=== PATIENT | male | born 1965 | race Caucasian/White ===

== ENCOUNTER 2018-10-21 08:49 | Inpatient (IN) | payer OTHER ==
[~2018-10-21] VITALS: Ht 175.3 cm; Wt 59.8 kg
[~2018-10-21 08:49] MED LIST: CLIN300 PO; Dazidox10 MG PO; HYDACE5 PO
[2018-10-21 10:08] LABS: BASOPHILS ABSOLUTE AUTO 0.05 K/mm3 (0.00-0.23); BASOPHILS PERCENT AUTO 0 % (0-2); EOSINOPHILS ABSOLUTE AUTO 0.05 K/mm3 (0.00-0.68); EOSINOPHILS PERCENT AUTO 0 % (0-6); Hematocrit 40.1 % (37.0-53.0); Hemoglobin 13.6 g/dL (13.5-17.5); IMMATURE GRAN ABSOLUTE AUTO 0.06 K/mm3 (0.00-0.10); IMMATURE GRAN PERCENT AUTO 0 % (0-1); LYMPHOCYTES ABSOLUTE AUTO 1.59 K/mm3 (0.84-5.20); LYMPHOCYTES PERCENT AUTO 9 % (21-46); MONOCYTES ABSOLUTE AUTO 1.23 K/mm3 (0.16-1.47); MONOCYTES PERCENT AUTO 7 % (4-13); Mean Corpuscular HGB 30.2 pg (26.0-34.0); Mean Corpuscular HGB Conc 33.9 g/dL (31.5-36.5); Mean Corpuscular Volume 89 fL (80-100); Mean Platelet Volume 11.1 fL (9.1-12.4); NEUTROPHILS ABSOLUTE AUTO 14.99 K/mm3 (1.96-9.15); NEUTROPHILS PERCENT AUTO 84 % (41-73); Platelet Count 164 K/mm3 (150-400); RDW Coefficient Variation 13.2 % (11.7-14.2); RDW Standard Deviation 43.5 fL (35.1-46.3); Red Blood Cell Count 4.51 M/mm3 (4.30-5.90); White Blood Cell Count 17.97 K/mm3 (4.00-11.30)
[2018-10-21 10:23] LABS: Alanine Aminotransfer (ALT/SGP 31 U/L (12-78); Albumin, Blood 2.9 g/dL (3.4-5.0); Albumin/Globulin Ratio 0.7 (0.8-1.8); Alk Phos 114 U/L (50-136); Anion Gap 8 mmol/L (6-16); Aspartate Aminotrans (AST/SGOT 24 U/L (12-37); Bilirubin, Total 0.4 mg/dL (0.1-1.0); Blood Urea Nitrogen 16 mg/dL (8-24); Bun/Creatinine Ratio 16.1 (12.0-20.0); CO2, Blood 24 mmol/L (21-32); Calcium, Blood 8.3 mg/dL (8.5-10.1); Chloride, Blood 101 mmol/L (98-108); Creatinine, Blood 0.99 mg/dL (0.60-1.20); Globulin, Blood 4.3 g/dL (2.2-4.0); Glomerular Filtration Rate >60 (60-); Glucose, Blood 139 mg/dL (70-99); Potassium, Blood 3.7 mmol/L (3.5-5.5); Sodium, Blood 133 mmol/L (136-145); Total Protein, Blood 7.2 g/dL (6.4-8.2)
[2018-10-22 04:44] LABS: BASOPHILS ABSOLUTE AUTO 0.02 K/mm3 (0.00-0.23); BASOPHILS PERCENT AUTO 0 % (0-2); EOSINOPHILS ABSOLUTE AUTO 0.17 K/mm3 (0.00-0.68); EOSINOPHILS PERCENT AUTO 2 % (0-6); Hematocrit 38.8 % (37.0-53.0); IMMATURE GRAN ABSOLUTE AUTO 0.04 K/mm3 (0.00-0.10); IMMATURE GRAN PERCENT AUTO 0 % (0-1); LYMPHOCYTES ABSOLUTE AUTO 1.95 K/mm3 (0.84-5.20); LYMPHOCYTES PERCENT AUTO 17 % (21-46); MONOCYTES ABSOLUTE AUTO 0.97 K/mm3 (0.16-1.47); MONOCYTES PERCENT AUTO 9 % (4-13); Mean Corpuscular HGB Conc 33.5 g/dL (31.5-36.5); Mean Corpuscular Volume 89 fL (80-100); Mean Platelet Volume 10.8 fL (9.1-12.4); NEUTROPHILS ABSOLUTE AUTO 8.18 K/mm3 (1.96-9.15); NEUTROPHILS PERCENT AUTO 72 % (41-73); Platelet Count 160 K/mm3 (150-400); RDW Coefficient Variation 13.2 % (11.7-14.2); RDW Standard Deviation 43.3 fL (35.1-46.3); Red Blood Cell Count 4.34 M/mm3 (4.30-5.90); White Blood Cell Count 11.33 K/mm3 (4.00-11.30)
[2018-10-22 05:05] LABS: Anion Gap 8 mmol/L (6-16); Blood Urea Nitrogen 17 mg/dL (8-24); Bun/Creatinine Ratio 17.8 (12.0-20.0); CO2, Blood 24 mmol/L (21-32); Calcium, Blood 7.8 mg/dL (8.5-10.1); Chloride, Blood 104 mmol/L (98-108); Creatinine, Blood 0.96 mg/dL (0.60-1.20); Glomerular Filtration Rate >60 (60-); Glucose, Blood 110 mg/dL (70-99); Potassium, Blood 3.9 mmol/L (3.5-5.5); Sodium, Blood 136 mmol/L (136-145)
[2018-10-23] MEDS ORDERED: ACET325 PO (09:30)
[2018-10-23] MEDS ORDERED: CEPH500 PO (09:31)
== END 2018-10-23 11:41 | disposition home or self-care (01) | DRG 872 ==
LOC: ER 08:49 → ERHOLD 11:12 → MEDS 14:30 → ENPENDDIS 10-23 09:34 → MEDS 10-23 11:41
PROVIDERS: Emergency Medicine; Family Medicine
PROC: 3E0234Z Introduction of Serum, Toxoid and Vaccine into Muscle, Percutaneous Approach (ICD-10-PCS; principal; 2018-10-21)
DX: A41.9 Sepsis, unspecified organism (principal); L03.115 Cellulitis of right lower limb; E87.1 Hypo-osmolality and hyponatremia; Z23 Encounter for immunization; E86.0 Dehydration; F17.210 Nicotine dependence, cigarettes, uncomplicated; F19.10 Other psychoactive substance abuse, uncomplicated; F12.129 Cannabis abuse with intoxication, unspecified
CPT/HCPCS: 36415; 73610; 80048; 80053; 83605; 85025; 90686; 93971; 96361; 96365; 96367; 96375; 99284-25; G0008; J0690; J1650; J1885; J3370; J7050; J7120

== ENCOUNTER 2020-09-14 14:20 | Emergency (ER) | payer OTHER ==
[~2020-09-14] VITALS: Ht 177.8 cm; Wt 63.5 kg
[~2020-09-14 14:20] MED LIST changes: +ACET325 PO; +CEPH500 PO
== END 2020-09-14 16:07 | disposition home or self-care (01) ==
LOC: ER 14:20
DX: S63.502A Unspecified sprain of left wrist, initial encounter (principal); J44.9 Chronic obstructive pulmonary disease, unspecified; F17.210 Nicotine dependence, cigarettes, uncomplicated; X50.1XXA Overexertion from prolonged static or awkward postures, initial encounter
CPT/HCPCS: 73110; 99283-25

== ENCOUNTER 2021-06-07 20:33 | Emergency (ER) | payer OTHER | END 2021-06-07 22:50 | disposition left against medical advice (07) | LOC: ER 20:33 | DX: Z53.21 Procedure and treatment not carried out due to patient leaving prior to being seen by health care provider (principal) ==

== ENCOUNTER 2024-04-19 12:18 | Emergency (ER) | payer OTHER ==
[~2024-04-19] VITALS: Ht 177.8 cm; Wt 56.7 kg
[~2024-04-19 12:18] MED LIST changes: +Prinivil10 MG PO
[2024-04-19] MEDS ORDERED: Aspirin 325 MG Tab PO ONE (12:55)
[2024-04-19 13:00] LABS: BASOPHILS ABSOLUTE AUTO 0.06 K/mm3 (0.00-0.23); BASOPHILS PERCENT AUTO 1 % (0-2); EOSINOPHILS ABSOLUTE AUTO 0.29 K/mm3 (0.00-0.68); EOSINOPHILS PERCENT AUTO 3 % (0-6); Hematocrit 41.4 % (37.0-53.0); Hemoglobin 13.7 g/dL (13.5-17.5); IMMATURE GRAN ABSOLUTE AUTO 0.03 K/mm3 (0.00-0.10); IMMATURE GRAN PERCENT AUTO 0 % (0-1); LYMPHOCYTES ABSOLUTE AUTO 2.69 K/mm3 (0.84-5.20); LYMPHOCYTES PERCENT AUTO 24 % (21-46); MONOCYTES ABSOLUTE AUTO 0.83 K/mm3 (0.16-1.47); MONOCYTES PERCENT AUTO 8 % (4-13); Mean Corpuscular HGB 29.8 pg (26.0-34.0); Mean Corpuscular HGB Conc 33.1 g/dL (31.5-36.5); Mean Corpuscular Volume 90 fL (80-100); Mean Platelet Volume 11.1 fL (9.1-12.4); NEUTROPHILS ABSOLUTE AUTO 7.15 K/mm3 (1.96-9.15); NEUTROPHILS PERCENT AUTO 65 % (41-73); Platelet Count 178 K/mm3 (150-400); RDW Standard Deviation 46.6 fL (35.1-46.3); Red Blood Cell Count 4.59 M/mm3 (4.30-5.90); White Blood Cell Count 11.05 K/mm3 (4.00-11.30)
[2024-04-19 13:21] LABS: Albumin, Blood 3.3 g/dL (3.4-5.0); Albumin/Globulin Ratio 0.9 (0.8-1.8); Bilirubin, Total 0.2 mg/dL (0.1-1.0); Bun/Creatinine Ratio 16.1 (12.0-20.0); Calcium, Blood 8.8 mg/dL (8.5-10.1); Creatinine, Blood 0.99 mg/dL (0.60-1.20); Globulin, Blood 3.6 g/dL (2.2-4.0); Potassium, Blood 4.2 mmol/L (3.5-5.5); Total Protein, Blood 6.9 g/dL (6.4-8.2)
[2024-04-19] MEDS ORDERED: FLUT1DIS2 INH (13:44)
[2024-04-19] MEDS ORDERED: ALBU90OI INH (13:44)
[2024-04-19] MEDS ORDERED: Prinivil10 MG PO (13:44)
[2024-04-19 14:30] VITALS: BP 201/111
== END 2024-04-19 14:35 | disposition home or self-care (01) ==
LOC: ER 12:18
PROVIDERS: Physician Assistant
DX: R07.9 Chest pain, unspecified (principal); I10 Essential (primary) hypertension; J44.9 Chronic obstructive pulmonary disease, unspecified; F17.210 Nicotine dependence, cigarettes, uncomplicated; Z79.899 Other long term (current) drug therapy
CPT/HCPCS: 71046; 80053; 83690; 84484; 85025; 93005; 93010; 99285-25; A9270

== ENCOUNTER 2024-04-26 15:43 | Emergency (ER) | payer OTHER ==
[~2024-04-26] VITALS: Ht 177.8 cm; Wt 54.4 kg
[~2024-04-26 15:43] MED LIST changes: +ALBU90OI INH; +FLUT1DIS2 INH
[2024-04-26 15:57] VITALS: BP 175/109
[2024-04-26 16:20] LABS: Source, Urine Clean Catch
[2024-04-26 16:24] LABS: BASOPHILS ABSOLUTE AUTO 0.05 K/mm3 (0.00-0.23); BASOPHILS PERCENT AUTO 1 % (0-2); EOSINOPHILS ABSOLUTE AUTO 0.34 K/mm3 (0.00-0.68); EOSINOPHILS PERCENT AUTO 3 % (0-6); Hematocrit 42.8 % (37.0-53.0); Hemoglobin 14.7 g/dL (13.5-17.5); IMMATURE GRAN ABSOLUTE AUTO 0.02 K/mm3 (0.00-0.10); IMMATURE GRAN PERCENT AUTO 0 % (0-1); LYMPHOCYTES ABSOLUTE AUTO 2.18 K/mm3 (0.84-5.20); LYMPHOCYTES PERCENT AUTO 22 % (21-46); MONOCYTES PERCENT AUTO 7 % (4-13); Mean Corpuscular HGB 29.8 pg (26.0-34.0); Mean Corpuscular HGB Conc 34.3 g/dL (31.5-36.5); Mean Corpuscular Volume 87 fL (80-100); Mean Platelet Volume 10.4 fL (9.1-12.4); NEUTROPHILS ABSOLUTE AUTO 6.75 K/mm3 (1.96-9.15); NEUTROPHILS PERCENT AUTO 67 % (41-73); Platelet Count 181 K/mm3 (150-400); RDW Coefficient Variation 13.7 % (11.7-14.2); RDW Standard Deviation 44.2 fL (35.1-46.3); Red Blood Cell Count 4.93 M/mm3 (4.30-5.90); White Blood Cell Count 10.04 K/mm3 (4.00-11.30)
[2024-04-26 16:25] LABS: Appearance, Urine Clear (Clear); Bilirubin, Urine Neg (Neg); Blood, Urine Neg (Neg); Color, Urine Yellow (P-Yellow); Glucose Qualitative, Urine Neg (Neg); Ketones, Urine Neg (Neg); Leukocyte Esterase, Urine Neg (Neg); Nitrite, Urine Neg (Neg); Protein, Urine Neg (Neg); Urobilinogen, Urine NORM (Normal)
[2024-04-26 16:56] LABS: Albumin, Blood 3.7 g/dL (3.4-5.0); Albumin/Globulin Ratio 0.9 (0.8-1.8); Bilirubin, Total 0.4 mg/dL (0.1-1.0); Bun/Creatinine Ratio 22.1 (12.0-20.0); Calcium, Blood 8.8 mg/dL (8.5-10.1); Creatinine, Blood 1.4 mg/dL (0.60-1.20); Potassium, Blood 4.8 mmol/L (3.5-5.5); Total Protein, Blood 7.7 g/dL (6.4-8.2)
[2024-04-26] MEDS ORDERED: TAMS.4ER PO (17:29)
[2024-04-26] MEDS ORDERED: Tamsulosin HCl 0.4 MG Cap PO ONE (17:30)
== END 2024-04-26 18:12 | disposition home or self-care (01) ==
LOC: ER 15:43
PROVIDERS: Physician Assistant
DX: R32 Unspecified urinary incontinence (principal); J44.9 Chronic obstructive pulmonary disease, unspecified; F17.210 Nicotine dependence, cigarettes, uncomplicated; Z79.899 Other long term (current) drug therapy
CPT/HCPCS: 80053; 81003; 85025; 99283; A9270

== ENCOUNTER → 2024-06-27 | Outpatient (CLI) | payer OTHER ==
[~2024-06-27] MED LIST changes: +TAMS.4ER PO
[2024-06-27 11:55] LABS: BASOPHILS ABSOLUTE AUTO 0.07 K/mm3 (0.00-0.23); BASOPHILS PERCENT AUTO 1 % (0-2); EOSINOPHILS ABSOLUTE AUTO 0.54 K/mm3 (0.00-0.68); EOSINOPHILS PERCENT AUTO 6 % (0-6); Hematocrit 44.6 % (37.0-53.0); Hemoglobin 15.1 g/dL (13.5-17.5); IMMATURE GRAN ABSOLUTE AUTO 0.02 K/mm3 (0.00-0.10); IMMATURE GRAN PERCENT AUTO 0 % (0-1); LYMPHOCYTES ABSOLUTE AUTO 2.63 K/mm3 (0.84-5.20); LYMPHOCYTES PERCENT AUTO 27 % (21-46); MONOCYTES ABSOLUTE AUTO 0.91 K/mm3 (0.16-1.47); MONOCYTES PERCENT AUTO 9 % (4-13); Mean Corpuscular HGB Conc 33.9 g/dL (31.5-36.5); Mean Corpuscular Volume 89 fL (80-100); Mean Platelet Volume 11.8 fL (9.1-12.4); NEUTROPHILS ABSOLUTE AUTO 5.51 K/mm3 (1.96-9.15); NEUTROPHILS PERCENT AUTO 57 % (41-73); Platelet Count 194 K/mm3 (150-400); RDW Coefficient Variation 14.2 % (11.7-14.2); RDW Standard Deviation 45.9 fL (35.1-46.3); Red Blood Cell Count 5.03 M/mm3 (4.30-5.90); White Blood Cell Count 9.68 K/mm3 (4.00-11.30)
[2024-06-27 11:59] LABS: Alanine Aminotransfer (ALT/SGP 33 U/L (12-78); Albumin, Blood 3.6 g/dL (3.4-5.0); Albumin/Globulin Ratio 0.9 (0.8-1.8); Alk Phos 140 U/L (50-136); Anion Gap 5 mmol/L (3-11); Aspartate Aminotrans (AST/SGOT 20 U/L (12-37); Bilirubin, Direct <0.1 mg/dL (0.0-0.3); Bilirubin, Indirect Unable to Calculate mg/dL (0.1-0.7); Bilirubin, Total 0.3 mg/dL (0.1-1.0); Blood Urea Nitrogen 27 mg/dL (8-24); CHOL/HDL RATIO 2.3; CO2, Blood 29 mmol/L (21-32); Calcium, Blood 9.1 mg/dL (8.5-10.1); Chloride, Blood 107 mmol/L (98-108); Cholesterol 142 mg/dL (50-200); Creatinine, Blood 1.08 mg/dL (0.60-1.20); Globulin, Blood 4.1 g/dL (2.2-4.0); Glomerular Filtration Rate 80 (60-); Glucose, Blood 94 mg/dL (70-99); HDL Cholesterol 61 mg/dL (>39); LDL/HDL RATIO 1.1; Low Density Lipoprotein Chol 66 mg/dL (0-110); Potassium, Blood 4.2 mmol/L (3.5-5.5); Sodium, Blood 137 mmol/L (136-145); Total Protein, Blood 7.7 g/dL (6.4-8.2); Triglycerides 74 mg/dL (30-160); Very Low Density Lipoprot Chol 14 mg/dL (6-32)
[2024-06-27 12:05] LABS: Prostate Specific Antigen 0.241 ng/mL (0.000-4.000)
[2024-06-29 14:22] LABS: HEPATITIS C AB CIA INTERP Negative (Negative); HEPATITIS C ANTIBODY CIA INDEX 0.05 IV
== END ==
LOC: LAB SHORT 10:37 → LAB 10:37
PROVIDERS: Nurse Practitioner Family
DX: Z12.5 Encounter for screening for malignant neoplasm of prostate (principal); Z11.59 Encounter for screening for other viral diseases; I10 Essential (primary) hypertension
CPT/HCPCS: 80053; 80061; 82248; 84443; 85025; 86803; G0103

== ENCOUNTER 2024-08-09 10:47 | Observation (INO) | payer OTHER ==
[~2024-08-09] VITALS: Ht 175.3 cm; Wt 57.0 kg
[2024-08-09] MEDS ORDERED: Morphine Sulfate 4 MG/1 ML Injection IV ONE ×2 (11:20→13:20)
[2024-08-09] MEDS ORDERED: Diphth,Pertuss(Acell),Tet Vac 0.5 ML VIAL IM ONE (11:20)
[2024-08-09 11:32] LABS: BASOPHILS ABSOLUTE AUTO 0.06 K/mm3 (0.00-0.23); BASOPHILS PERCENT AUTO 1 % (0-2); EOSINOPHILS ABSOLUTE AUTO 0.29 K/mm3 (0.00-0.68); EOSINOPHILS PERCENT AUTO 3 % (0-6); Hematocrit 44.9 % (37.0-53.0); Hemoglobin 15.5 g/dL (13.5-17.5); IMMATURE GRAN ABSOLUTE AUTO 0.02 K/mm3 (0.00-0.10); IMMATURE GRAN PERCENT AUTO 0 % (0-1); LYMPHOCYTES ABSOLUTE AUTO 2.65 K/mm3 (0.84-5.20); LYMPHOCYTES PERCENT AUTO 26 % (21-46); MONOCYTES ABSOLUTE AUTO 0.73 K/mm3 (0.16-1.47); MONOCYTES PERCENT AUTO 7 % (4-13); Mean Corpuscular HGB 30.3 pg (26.0-34.0); Mean Corpuscular HGB Conc 34.5 g/dL (31.5-36.5); Mean Corpuscular Volume 88 fL (80-100); Mean Platelet Volume 11.3 fL (9.1-12.4); NEUTROPHILS ABSOLUTE AUTO 6.37 K/mm3 (1.96-9.15); NEUTROPHILS PERCENT AUTO 63 % (41-73); Platelet Count 180 K/mm3 (150-400); RDW Standard Deviation 45.1 fL (35.1-46.3); Red Blood Cell Count 5.12 M/mm3 (4.30-5.90); White Blood Cell Count 10.12 K/mm3 (4.00-11.30)
[2024-08-09] MEDS ORDERED: CHLO25B PO (11:32)
[2024-08-09 12:01] LABS: Albumin, Blood 3.4 g/dL (3.4-5.0); Albumin/Globulin Ratio 0.9 (0.8-1.8); Bilirubin, Total 0.6 mg/dL (0.1-1.0); Bun/Creatinine Ratio 25.2 (12.0-20.0); Calcium, Blood 8.7 mg/dL (8.5-10.1); Creatinine, Blood 1.11 mg/dL (0.60-1.20); Globulin, Blood 3.8 g/dL (2.2-4.0); Potassium, Blood 4.1 mmol/L (3.5-5.5); Total Protein, Blood 7.2 g/dL (6.4-8.2)
[2024-08-09] MEDS ORDERED: Lidocaine 4% 1 Patch TOP ONE (13:15)
[2024-08-09] MEDS ORDERED: Ketorolac Tromethamine 30mg Vial IV ONE (13:15)
[2024-08-09] MEDS ORDERED: Ondansetron 4 MG TAB PO PRN (13:50)
[2024-08-09] MEDS ORDERED: HYDROmorphone HCl/Pf 1MG SYR IV PRN (13:50)
[2024-08-09] MEDS ORDERED: OxyCODONE HCL 5 MG TAB PO PRN (13:50)
[2024-08-09] MEDS ORDERED: FLU VACC TS2024-25(6MOS UP)/PF 45 MCG/0.5 ML SYRINGE IM SCH (13:50)
[2024-08-09] MEDS ORDERED: Magnesium Hydroxide Conc 10 ML UDC PO PRN (13:50)
[2024-08-09] MEDS ORDERED: Ketorolac Tromethamine 15mg Vial IV PRN (14:00)
[2024-08-09] MEDS ORDERED: Labetalol HCL 5 MG/ML 4ML Injection (Single Dose) IV PRN ×2 (14:55→20:25)
[2024-08-09] MEDS ORDERED: HydroCHLOROthiazide 25 mg Tab PO SCH (15:00)
[2024-08-09] MEDS ORDERED: LORazepam 2 MG/ML 1ML Injection IM PRN ×3 (15:10→15:20)
[2024-08-09] MEDS ORDERED: Mometasone/Formoterol MDI 200/5 mcg 13 GM INH SCH (15:10)
[2024-08-09] MEDS ORDERED: Albuterol 2.5 MG/3 ML VIAL INH PRN (15:50)
[2024-08-09] MEDS ORDERED: ALBU90OI INH (15:59)
[2024-08-09] MEDS ORDERED: FLUTICASONE-SA1 EAC8 INH (16:00)
[2024-08-09] MEDS ORDERED: Thiamine HCl 100 MG in NS 50 ML IV SCH (16:00)
[2024-08-09] MEDS ORDERED: Folic Acid 1 MG in NS 50 ML IV SCH (16:00)
[2024-08-09] MEDS ORDERED: OXYB5 PO (16:01)
[2024-08-09] MEDS ORDERED: HydrALAZINE HCl 20 MG / ML 1ML Vial IV PRN ×4 (16:30→20:25)
[2024-08-09] MEDS ORDERED: Losartan Potassium 25 MG Tab PO SCH (17:00)
[2024-08-09] MEDS ORDERED: Acetaminophen 325 MG TABLET PO SCH (18:00)
[2024-08-09 18:10] VITALS: BP 174/93
--- NOTE | 2024-08-09 18:33 | NUR ---
SHIFT SUMMARY: PT IS A/O X 4, SBA, PLEASANT AND COOPERATIVE. ADMITTED FROM ER TO ROOM 329 THIS AFTERNOON. PT ON ADMIT WAS ON 2 LPM VIA NC WITH SATS AT 100% AND TO MAINTAIN 02 TO TREAT SMALL L PNEUMOTHORAX. PT CONTINUES TO BE ON 2 LPM VIA NC RR ARE E/U. PT DOES HAVE COARSE LUNG SOUNDS TO LLL CLEAR ALL OTHER ASCENCIO. PT REPORTS 3/10 PAIN TO L SIDE OF BACK/RIB AREA WHICH IS TOLERABLE. HE ALSO REPORTS 3/10 L LEG PAIN. PT HAS LIGHT BLUE BRUISING TO BOTH KNEES. NO SWELLING OR REDNESS OBSERVED TO HIS BACK. 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 THEY ARE NOT BLEEDING AND NO SWELLING OR REDNESS OBSERVED. PT ATE 100% OF DINNER AND TOLERATED WELL. PT ON TELE AND IS SINUS CHUNG AT 58. BLOOD PRESSURE ELEVATED ON ADMIT WITH SBP GREATER THAN 200. GAVE COZAAR 25 MG AT 1723. BP AT 1810 WAS 174/93 WITH HEART RATE OF 58. PT DID NOT EXHIBIT ANY ADVERSE REACTION TO COZAAR. HYDRALAZINE NOT GIVEN DUE TO BELOW PARAMETER OF SBP GREATER THAN 180. PT DENIES CP/PRESSURE AT THIS TIME. PT EDUCATED ON SMOKING POLICY. PT DENIES HAVING SMOKING PRODUCTS ON HIM AND DECLINED NICOTINE REPLACEMENT. CIWA IS 0 AT THIS TIME. CALL LIGHT IN REACH, BED IN LOW POSITION. FALL PRECAUTIONS DISCUSSED WITH PT AND REQUESTED HE CALL FOR SBA. PT V/U.
[2024-08-09 20:15] VITALS: BP 165/93
[2024-08-09] MEDS ORDERED: Sennosides 8.6 MG Tab PO SCH (21:00)
[2024-08-09] MEDS ORDERED: Docusate Sodium 100 MG Cap PO SCH (21:00)
[2024-08-10 02:37] VITALS: BP 181/94
[2024-08-10 03:44] VITALS: BP 152/86
--- NOTE | 2024-08-10 04:02 | NUR ---
SHIFT SUMMARY PATIENT LAST BP: 181/94 AND IV APRESOLINE 10 MG GIVEN FOR SBP >180 AND RECHECK: 152/86. ALERT AND ORIENTED AND SBA TO BR. USES URINAL AT BEDSIDE. DENIES CHEST PAIN, SOB, AND N/V. REPORTED LEFT RIBS/BACK PAIN AND OXYCODONE 5 MG GIVEN PER EMAR. RECEIVES SCHEDULE TYLENOL 650 MG. ON 2L O2 NC. CIWA= ZERO. PIV INTACT. LUMBER MARKER ASSIST PATIENT IN HAND/ARM CLEANING. BLE SCABS CLEANED WITH WOUND TRUSS DESIGNER AND MEPILEX APPLIED X 2 T SCABS/WOUNDS. COOPERATIVE WITH CARE. CALL LIGHT IN REACH. BED IN LOWEST POSITION. WILL CONTINUE TO MONITOR UNTIL DAY SHIFT NURSE ASSUMES CARE.
[2024-08-10 06:16] LABS: BASOPHILS ABSOLUTE AUTO 0.06 K/mm3 (0.00-0.23); BASOPHILS PERCENT AUTO 1 % (0-2); EOSINOPHILS PERCENT AUTO 2 % (0-6); Hematocrit 44.1 % (37.0-53.0); Hemoglobin 15.6 g/dL (13.5-17.5); IMMATURE GRAN ABSOLUTE AUTO 0.03 K/mm3 (0.00-0.10); IMMATURE GRAN PERCENT AUTO 0 % (0-1); LYMPHOCYTES ABSOLUTE AUTO 1.78 K/mm3 (0.84-5.20); LYMPHOCYTES PERCENT AUTO 14 % (21-46); MONOCYTES ABSOLUTE AUTO 0.81 K/mm3 (0.16-1.47); MONOCYTES PERCENT AUTO 6 % (4-13); Mean Corpuscular HGB 30.8 pg (26.0-34.0); Mean Corpuscular HGB Conc 35.4 g/dL (31.5-36.5); Mean Corpuscular Volume 87 fL (80-100); Mean Platelet Volume 11.6 fL (9.1-12.4); NEUTROPHILS ABSOLUTE AUTO 9.63 K/mm3 (1.96-9.15); NEUTROPHILS PERCENT AUTO 76 % (41-73); Platelet Count 183 K/mm3 (150-400); RDW Coefficient Variation 14.3 % (11.7-14.2); RDW Standard Deviation 45.3 fL (35.1-46.3); Red Blood Cell Count 5.07 M/mm3 (4.30-5.90); White Blood Cell Count 12.61 K/mm3 (4.00-11.30)
[2024-08-10 07:07] LABS: Albumin, Blood 3.3 g/dL (3.4-5.0); Albumin/Globulin Ratio 0.9 (0.8-1.8); Bilirubin, Direct 0.1 mg/dL (0.0-0.3); Bilirubin, Indirect 0.5 mg/dL (0.1-0.7); Bilirubin, Total 0.6 mg/dL (0.1-1.0); Bun/Creatinine Ratio 27.2 (12.0-20.0); Calcium, Blood 8.7 mg/dL (8.5-10.1); Creatinine, Blood 0.96 mg/dL (0.60-1.20); Globulin, Blood 3.8 g/dL (2.2-4.0); Potassium, Blood 3.8 mmol/L (3.5-5.5); Total Protein, Blood 7.1 g/dL (6.4-8.2)
[2024-08-10 07:33] VITALS: BP 168/87
[2024-08-10] MEDS ORDERED: Atorvastatin 40 MG Tab PO SCH (09:00)
[2024-08-10] MEDS ORDERED: Multivitamins 1 Tab PO SCH (09:00)
[2024-08-10] MEDS ORDERED: Folic Acid 1 MG TAB PO SCH (09:00)
[2024-08-10] MEDS ORDERED: HydroCHLOROthiazide 25 mg Tab PO SCH (09:00)
[2024-08-10] MEDS ORDERED: Lidocaine 4% 1 Patch TOP SCH (09:00)
[2024-08-10] MEDS ORDERED: Losartan Potassium 50 MG Tab PO SCH (09:00)
[2024-08-10] MEDS ORDERED: Aspirin 81 MG Chew PO SCH (09:00)
[2024-08-10] MEDS ORDERED: Enoxaparin 40 MG/0.4 ML SYR SC SCH (09:00)
[2024-08-10] MEDS ORDERED: Thiamine HCl 100 MG Tab PO SCH (09:00)
[2024-08-10] MEDS ORDERED: ASPI81CH PO (12:36)
[2024-08-10] MEDS ORDERED: DOCU100 PO (12:37)
[2024-08-10] MEDS ORDERED: ATOR40TA PO (12:37)
[2024-08-10] MEDS ORDERED: FOLI1 PO (12:38)
[2024-08-10] MEDS ORDERED: LOSA50 PO (12:38)
[2024-08-10] MEDS ORDERED: ONE DAILY MUL400 MCG PO (12:41)
[2024-08-10] MEDS ORDERED: OXYC5 PO (12:44)
--- NOTE | 2024-08-10 13:42 | NUR ---
DISCHARGE NOTE PT DISCHARGED TO HOME, DISCHARGE INFORMATION AND EDUCATION PROVIDED. HARD SCRIPT ALSO PROVIDED. IV REMOVED, TELE RETURNED. PT WALKED TO MEET HIS FRIEND FOR A RIDE. MEDICATIONS FAXED TO THE PHARMACY OF HIS CHOICE.
== END 2024-08-10 13:41 | disposition home or self-care (01) ==
LOC: ER 10:47 → MEDS 10:48 → ER 13:43 → MEDS 13:43 → SURS 13:43 → MEDS 13:43 → ER 16:28 → EDBEDREQ 16:38 → EDBEDREQSVC 16:39 → MEDS 16:45 → SURS 16:45 → MEDS 16:45
PROVIDERS: Student in an Organized Health Care Education/Training Program; ADMIT Surgery
DX: S22.42XA Multiple fractures of ribs, left side, initial encounter for closed fracture (principal); W17.89XA Other fall from one level to another, initial encounter; J93.9 Pneumothorax, unspecified; I10 Essential (primary) hypertension; J44.9 Chronic obstructive pulmonary disease, unspecified; R91.8 Other nonspecific abnormal finding of lung field; F15.10 Other stimulant abuse, uncomplicated; F17.210 Nicotine dependence, cigarettes, uncomplicated; Z79.899 Other long term (current) drug therapy; Z86.73 Personal history of transient ischemic attack (TIA), and cerebral infarction without residual deficits
CPT/HCPCS: 36415; 70450; 71260; 72125; 73590; 74177; 80048; 80053; 80076; 83735; 85025; 90715; 94640; 94664; 94762; 97165; 97530; A9270; G0378; J0360; J1650; J1885; J2270; J3411; Q9967